=== PATIENT | male | born 1930 | race Caucasian/White ===

== ENCOUNTER 2017-12-01 15:31 | Outpatient (CLI) | payer MEDICARE, BC ==
[~2017-12-01 15:31] MED LIST: CALC668T PO; CHOL100044 PO; CLON0.1T PO; CLON0.5T12 PO; FURO40TA5 PO; ISRA5CAP PO; LISI40TA4 PO; NADO80TA14 PO; ZOLP5TAB2 PO
== END 2017-12-01 23:59 | disposition home or self-care (01) ==
LOC: RAD 15:31
PROVIDERS: ATTEND Legal Medicine
DX: M48.56XA Collapsed vertebra, not elsewhere classified, lumbar region, initial encounter for fracture (principal); Z91.81 History of falling; I51.7 Cardiomegaly; R09.89 Other specified symptoms and signs involving the circulatory and respiratory systems
CPT/HCPCS: 71100-TC; 72074-TC; 72100-TC